=== PATIENT | male | born 1960 | race Caucasian/White ===

== ENCOUNTER → 2016-08-04 | Outpatient (CLI) | payer OTHER ==
[2016-08-04] VITALS (7 sets, daily range): BP systolic 112–201; BP diastolic 62–98
[~2016-08-04] VITALS: Ht 198.1 cm; Wt 138.3 kg
[~2016-08-04] MED LIST: CATHETER FLUSH 10 ML SYR IV PRN
== END ==
LOC: CARD 06:44
PROVIDERS: ATTEND Internal Medicine
DX: I10 Essential (primary) hypertension (principal); R53.81 Other malaise; R53.83 Other fatigue
CPT/HCPCS: 78452; 93017